=== PATIENT | female | born 1995 | race American Indian/Alaskan Native ===

== ENCOUNTER 2017-03-10 09:43 | Emergency (ER) | payer MEDICAID ==
[2017-03-10 09:57] VITALS: BP 102/74
--- NOTE | 2017-03-10 10:35 | Emergency Department Report ---
- General Chief Complaint: Upper Respiratory Infection Stated Complaint: FEVER / BODY ACHES Time Seen by Provider: 03/10/17 10:26 Source: patient Mode of arrival: Ambulatory Limitations: No Limitations - History of Present Illness MD Complaint: fever, cough, sore throat, rhinorrhea, nasal congestion, sinus pain -: Gradual, days(s) (2) Quality: aching Associated Symptoms: fever, chills, myalgias, headache, rhinorrhea, nasal congestion, sore throat. denies: stiff neck, cough - Related Data Home Medications Medication Instructions Recorded Confirmed Last Taken Tablet 1 tab PO DAILY 03/18/15 03/18/15 03/04/15 08:30 1 tab Previous Rx's Medication Instructions Recorded Last Taken Type Ferrous Sulfate [Feosol 325 MG tab] 325 mg PO BID #60 tablet 03/20/15 Unknown Rx Ibuprofen [Motrin 600 MG tab] 600 mg PO Q6H #30 tablet 03/20/15 Unknown Rx Amoxicillin [Amoxicillin TAB] 875 mg PO BID #24 tablet 03/10/17 Unknown Rx Allergies Allergy/AdvReac Type Severity Reaction Status Date / Time No Known Allergies Allergy Unverified 03/18/15 05:27 ED Review of Systems ROS: Stated complaint: FEVER / BODY ACHES Other details as noted in HPI Constitutional: chills, fever, malaise Eyes: denies: eye pain, eye discharge, vision change ENT: throat pain. denies: ear pain Respiratory: denies: cough, shortness of breath, SOB with exertion, SOB at rest , stridor, wheezing Cardiovascular: denies: chest pain, palpitations Endocrine: no symptoms reported Gastrointestinal: denies: abdominal pain, nausea, diarrhea Genitourinary: denies: urgency, dysuria, discharge Musculoskeletal: denies: back pain, joint swelling, arthralgia Skin: denies: rash, lesions Neurological: denies: headache, weakness, paresthesias Psychiatric: denies: anxiety, depression Hematological/Lymphatic: denies: easy bleeding, easy bruising ED Past Medical Hx - Past Medical History Previous Medical History?: No Hx Hypertension: No Hx Congestive Heart Failure: No Hx Diabetes: No Hx Deep Vein Thrombosis: No Hx Renal Disease: No Hx Sickle Cell Disease: No Hx Seizures: No Hx Asthma: No Hx COPD: No Hx HIV: No - Surgical History Past Surgical History?: No - Social History Smoking Status: Unknown if ever smoked Substance Use Type: None - Medications Home Medications: Home Medications Medication Instructions Recorded Confirmed Last Taken Type Tablet 1 tab PO DAILY 03/18/15 03/18/15 03/04/15 08:30 History 1 tab Ferrous Sulfate [Feosol 325 MG tab] 325 mg PO BID #60 tablet 03/20/15 Unknown Rx Ibuprofen [Motrin 600 MG tab] 600 mg PO Q6H #30 tablet 03/20/15 Unknown Rx Amoxicillin [Amoxicillin TAB] 875 mg PO BID #24 tablet 03/10/17 Unknown Rx ED Physical Exam - General Limitations: No Limitations General appearance: alert, in no apparent distress - Head Head exam: Present: atraumatic, normocephalic - Eye Eye exam: Present: normal appearance, PERRL, EOMI - ENT ENT exam: Present: mucous membranes moist - Expanded ENT Exam Expanded Mouth exam: Absent: drooling, trismus, muffled voice Throat exam: Positive: tonsillar erythema - Neck Neck exam: Present: normal inspection. Absent: tenderness, meningismus, full ROM - Respiratory Respiratory exam: Present: normal lung sounds bilaterally. Absent: respiratory distress - Cardiovascular Cardiovascular Exam: Present: regular rate, normal rhythm. Absent: systolic murmur, diastolic murmur, rubs, gallop - GI/Abdominal GI/Abdominal exam: Present: soft, normal bowel sounds - Extremities Exam Extremities exam: Present: normal inspection - Back Exam Back exam: Present: normal inspection - Neurological Exam Neurological exam: Present: alert, oriented X3 - Psychiatric Psychiatric exam: Present: normal affect, normal mood - Skin Skin exam: Present: warm, dry, intact, normal color. Absent: rash ED Course Vital Signs 03/10/17 09:54 Temperature 98.2 F Pulse Rate 75 Respiratory 20 Rate Blood Pressure 102/74 O2 Sat by Pulse 95 Oximetry Critical care attestation.: If time is entered above; I have spent that time in minutes in the direct care of this critically ill patient, excluding procedure time. ED Disposition Clinical Impression: Pharyngitis, Sinusitis Disposition: DISCHARGED TO HOME OR SELFCARE Is pt being admited?: No Condition: Stable Instructions: Pharyngitis (ED), Sinusitis (ED) Prescriptions: Amoxicillin [Amoxicillin TAB] 875 mg PO BID #24 tablet Referrals: PRIMARY CARE, [Primary Care Provider] - 3-5 Days Forms: Work/School Release Form(ED)
== END 2017-03-10 11:31 | disposition home or self-care (01) ==
LOC: ED 09:43
DX: J02.9 Acute pharyngitis, unspecified (principal); J32.9 Chronic sinusitis, unspecified
CPT/HCPCS: 99282

== ENCOUNTER 2017-04-22 05:08 | Emergency (ER) | payer MEDICAID ==
[2017-04-22 06:16] LABS: Basophils % (Auto) 1.1 % (0.0-1.8); Eosinophils % (Auto) 3.4 % (0.0-4.3); Hematocrit 37.7 % (30.3-42.9); Hemoglobin 13.1 gm/dl (10.1-14.3); Mean Corpuscular HGB Conc 35 % (30-34); Mean Corpuscular Hemoglobin 29 pg (28-32); Mean Corpuscular Volume 85 fl (79-97); Platelet Count 261 K/mm3 (140-440); Red Blood Count 4.45 M/mm3 (3.65-5.03); Red Cell Distribution Width 13.2 % (13.2-15.2); White Blood Count 9.2 K/mm3 (4.5-11.0)
[2017-04-22 06:33] LABS: Alanine Aminotransferase 13 units/L (7-56); Albumin 4.6 g/dL (3.9-5); Albumin/Globulin Ratio 1.3 %; Alkaline Phosphatase 69 units/L (35-129); Anion Gap 15 mmol/L; Blood Urea Nitrogen 7 mg/dL (7-17); Calcium 9.4 mg/dL (8.4-10.2); Carbon Dioxide 26 mmol/L (22-30); Chloride 101.5 mmol/L (98-107); Glucose 78 mg/dL (65-100); Lipase 71 units/L (13-60); Potassium 3.8 mmol/L (3.6-5.0); Sodium 139 mmol/L (137-145); Total Protein 8.1 g/dL (6.3-8.2)
[2017-04-22 07:41] LABS: Bilirubin,Urine NEG (Negative); Blood,Urine NEG (Negative); Ketones,Urine NEG (Negative); Leukocyte Esterase,Urine NEG (Negative); Mucus,Urine 3+ /HPF; Nitrite,Urine NEG (Negative); Protein,Urine <15 mg/dL mg/dL (Negative); Urobilinogen,Urine < 2.0 mg/dL (<2.0)
--- NOTE | 2017-04-22 16:46 | Emergency Department Report ---
ED Abdominal Pain HPI - General Chief Complaint: Abdominal Pain Stated Complaint: NO APPETITE Time Seen by Provider: 04/22/17 16:26 Source: EMS Mode of arrival: Ambulatory Limitations: No Limitations - History of Present Illness MD Complaint: abdominal pain -: Sudden, days(s) (3) Location: suprapubic Radiation: none Migration to: no migration Severity: mild Severity scale (0 -10): 2 Quality: cramping Consistency: constant Improves With: nothing Worsens With: eating Associated Symptoms: denies other symptoms Treatments Prior to Arrival: other - Related Data LMP (females 10-50): last week Home Medications Medication Instructions Recorded Confirmed Last Taken Tablet 1 tab PO DAILY 03/18/15 03/18/15 03/04/15 08:30 1 tab Previous Rx's Medication Instructions Recorded Last Taken Type Ferrous Sulfate [Feosol 325 MG tab] 325 mg PO BID #60 tablet 03/20/15 Unknown Rx Ibuprofen [Motrin 600 MG tab] 600 mg PO Q6H #30 tablet 03/20/15 Unknown Rx Amoxicillin [Amoxicillin TAB] 875 mg PO BID #24 tablet 03/10/17 Unknown Rx Dicyclomine [Bentyl] 10 mg PO QID #30 capsule 04/22/17 Unknown Rx Allergies Allergy/AdvReac Type Severity Reaction Status Date / Time No Known Allergies Allergy Unverified 03/18/15 05:27 ED Review of Systems ROS: Stated complaint: NO APPETITE Other details as noted in HPI Comment: All other systems reviewed and negative Respiratory: no symptoms reported Endocrine: no symptoms reported Gastrointestinal: abdominal pain, nausea ED Past Medical Hx - Past Medical History Previous Medical History?: No Hx Hypertension: No Hx Congestive Heart Failure: No Hx Diabetes: No Hx Deep Vein Thrombosis: No Hx Renal Disease: No Hx Sickle Cell Disease: No Hx Seizures: No Hx Asthma: No Hx COPD: No Hx HIV: No - Surgical History Past Surgical History?: No - Social History Smoking Status: Unknown if ever smoked Substance Use Type: None - Medications Home Medications: Home Medications Medication Instructions Recorded Confirmed Last Taken Type Tablet 1 tab PO DAILY 03/18/15 03/18/15 03/04/15 08:30 History 1 tab Ferrous Sulfate [Feosol 325 MG tab] 325 mg PO BID #60 tablet 03/20/15 Unknown Rx Ibuprofen [Motrin 600 MG tab] 600 mg PO Q6H #30 tablet 03/20/15 Unknown Rx Amoxicillin [Amoxicillin TAB] 875 mg PO BID #24 tablet 03/10/17 Unknown Rx Dicyclomine [Bentyl] 10 mg PO QID #30 capsule 04/22/17 Unknown Rx ED Physical Exam - General Limitations: No Limitations, Language Barrier General appearance: in no apparent distress - Head Head exam: Present: atraumatic - Eye Pupils: Present: normal accommodation - ENT ENT exam: Present: normal exam - Neck Neck exam: Present: normal inspection - Respiratory Respiratory exam: Present: normal lung sounds bilaterally - Cardiovascular Cardiovascular Exam: Present: regular rate, normal rhythm - GI/Abdominal GI/Abdominal exam: Present: soft - Rectal Rectal exam: Present: deferred - External exam: Present: other (patient refused) - Back Exam Back exam: Present: normal inspection - Neurological Exam Neurological exam: Present: alert, altered - Psychiatric Psychiatric exam: Present: normal affect, normal mood - Skin Skin exam: Present: warm, dry ED Course Vital Signs 04/22/17 05:29 Temperature 97.5 F L Pulse Rate 70 Blood Pressure 98/89 O2 Sat by Pulse 97 Oximetry - Reevaluation(s) Reevaluation #1: 04/22/17 16:46 feels better wants to go home. ED Medical Decision Making - Lab Data Result diagrams: 04/22/17 05:58 04/22/17 05:58 Critical care attestation.: If time is entered above; I have spent that time in minutes in the direct care of this critically ill patient, excluding procedure time. ED Disposition Clinical Impression: Abdominal pain Disposition: DC-01 TO HOME OR SELFCARE Is pt being admited?: No Does the pt Need Aspirin: No Condition: Stable Instructions: Abdominal Pain (ED) Prescriptions: Dicyclomine [Bentyl] 10 mg PO QID #30 capsule Referrals: PRIMARY CARE, [Primary Care Provider] - 3-5 Days
[2017-04-22 16:48] VITALS: BP 98/64
== END 2017-04-22 17:12 | disposition home or self-care (01) ==
LOC: ED 05:08
DX: R10.9 Unspecified abdominal pain (principal)
CPT/HCPCS: 36415; 80053; 81001; 83690; 84703; 85025; 99283

== ENCOUNTER 2018-12-10 11:55 | Emergency (ER) | payer MEDICAID ==
--- NOTE | 2018-12-10 12:08 | Emergency Department Report ---
Blank Doc - Documentation Documentation: 23 female presents with throat pain x 2 days difficult to drink or eat due to pain no vag bleed, abd pain, LMP 07/11/18 erythematous, exudate This initial assessment diagnostic orders/clinical plan/treatment (s) is/Are subject change based on patient's health status, clinical progression and re- assessment by fellow clinical providers in the ED. Further treatment and work-up at subsequent clinical providers discretion. Patient/guardians urged not to elope from their condition may be serious if not clinically assessed and managed. Initial order include: Rapid strep treatment ACC evaluation
[2018-12-10 14:48] LABS: Basophils # (Auto) 0.1 K/mm3 (0.0-0.1); Basophils % (Auto) 0.7 % (0.0-1.8); Eosinophils # (Auto) 0.1 K/mm3 (0.0-0.4); Eosinophils % (Auto) 0.5 % (0.0-4.3); Hematocrit 32.3 % (30.3-42.9); Hemoglobin 11.3 gm/dl (10.1-14.3); Lymphocytes # (Auto) 2.2 K/mm3 (1.2-5.4); Mean Corpuscular HGB Conc 35 % (30-34); Mean Corpuscular Volume 85 fl (79-97); Monocytes # (Auto) 0.7 K/mm3 (0.0-0.8); Monocytes % (Auto) 7.3 % (0.0-7.3); Platelet Count 267 K/mm3 (140-440); Red Blood Count 3.79 M/mm3 (3.65-5.03); Red Cell Distribution Width 13.1 % (13.2-15.2)
--- NOTE | 2018-12-10 14:53 | Emergency Department Report ---
HPI - General Chief Complaint: Sore Throat Time Seen by Provider: 12/10/18 12:03 - HPI HPI: 23-year-old female presents to the emergency department with complaint of some difficulty swallowing liquids and solids. The patient says that the difficulty with solids has been going on for the past year but the difficulty with liquids has been going on for the past 2 weeks. She is concerned as she is about 5 months and wants to make sure that she is taking in enough calories in nutrients for her and the fetus. She denies any ab dominal pain, vaginal bleeding, fever, nausea, back pain. She follows with primarily her [facility]POR[facility]K ANALYST. She otherwise denies any other past medical history. She has not taken anything for her symptoms prior to arrival. ED Past Medical Hx - Past Medical History Previous Medical History?: No Hx Hypertension: No Hx Congestive Heart Failure: No Hx Diabetes: No Hx Deep Vein Thrombosis: No Hx Renal Disease: No Hx Sickle Cell Disease: No Hx Seizures: No Hx Asthma: No Hx COPD: No Hx HIV: No - Surgical History Past Surgical History?: No - Social History Smoking Status: Never Smoker Substance Use Type: None - Medications Home Medications: Home Medications Medication Instructions Recorded Confirmed Last Taken Type Tablet 1 tab PO DAILY 03/18/15 03/18/15 03/04/15 08:30 History 1 tab RX: Ferrous Sulfate [Feosol 325 MG 325 mg PO BID #60 tablet 03/20/15 Unknown Rx tab] RX: Ibuprofen [Motrin 600 MG tab] 600 mg PO Q6H #30 tablet 03/20/15 Unknown Rx Amoxicillin [Amoxicillin TAB] 875 mg PO BID #24 tablet 03/10/17 Unknown Rx Dicyclomine [Bentyl] 10 mg PO QID #30 capsule 04/22/17 Unknown Rx Nitrofurantoin Monohyd/M-Cryst 100 mg PO BID #14 capsule 12/10/18 Unknown Rx [Macrobid 100 mg Capsule] ED Review of Systems ROS: Stated complaint: SORE THROAT/5 MOS Other details as noted in HPI Comment: All other systems reviewed and negative Constitutional: denies: chills, fever Eyes: denies: eye pain, vision change ENT: throat pain, other (difficulty swallowing) Respiratory: denies: cough, shortness of breath Cardiovascular: denies: chest pain, palpitations Gastrointestinal: denies: abdominal pain, vomiting Genitourinary: denies: dysuria, frequency Musculoskeletal: denies: back pain, arthralgia Skin: denies: rash, lesions Neurological: denies: headache, weakness Physical Exam - Physical Exam Vital Signs: Vital Signs 12/10/18 12:03 Temperature 98.2 F Pulse Rate 78 Respiratory 18 Rate Blood Pressure 102/57 O2 Sat by Pulse 100 Oximetry Physical Exam: GENERAL: The patient is well-developed well-nourished. HEENT: Normocephalic. Atraumatic. Patient has moist mucous membranes. Oropharynx is clear without tonsillar hypertrophy, erythema or exudates. Mallampati of one. No drooling or trismus. EYES: Extraocular motions are intact. Pupils are equal and reactive to light bilaterally. NECK: Supple. Trachea is midline. CHEST/LUNGS: Clear to auscultation. There is no respiratory distress noted. HEART/CARDIOVASCULAR: Regular. There is no tachycardia. There is no obvious murmur. ABDOMEN: Abdomen is soft, nontender. Patient has normal bowel sounds. There is no abdominal distention. SKIN: Skin is warm and dry. NEURO: The patient is awake, alert, and oriented. The patient is cooperative. The patient has no focal neurologic deficits. The patient has normal speech. MUSCULOSKELETAL: There is no tenderness or deformity. There is no limitation range of motion. There is no evidence of acute injury. ED Course Vital Signs 12/10/18 12:03 Temperature 98.2 F Pulse Rate 78 Respiratory 18 Rate Blood Pressure 102/57 O2 Sat by Pulse 100 Oximetry ED Medical Decision Making - Lab Data Result diagrams: 12/10/18 14:37 12/10/18 14:37 - Medical Decision Making This patient presents to the emergency Department with complaints of some throat pain and/or difficulty swallowing. On examination there is no tonsillar hypertrophy, erythema or exudates, drooling or trismus. The patient was tested for strep pharyngitis through triage and it came back as negative. The patient explained her symptoms to me when she came back to the fast track side and it sounded more like some dysphagia. She says that she has difficulty swallowing both liquids and solids. However the patient does not appear consistent with any impacted food bolus or any severe esophageal stricture. The patient was seen sucking on a peppermint candy. And was later seen eating and drinking without any nausea, vomiting, or inability to pass the food. However the patient does display some signs of dehydration. She may have some previous episodes of dysphasia or she could be having some discomfort with swallowing and choosing not to eat or drink enough. She had 80 ketones in the urine but there was no signs of any renal insufficiency or acute kidney injury. The patient was given an IV and had IV fluid resuscitation. After this she was seen ambulatory, and once again passed an oral challenge. For all these reasons the patient appears safe for discharge home at this time. She has been instructed to follow up with primary care and [facility]K ANA[facility]. She will increase her oral rehydration. However the patient will return to the emergency department immediately with any inability to stay hydrated or any worsening of her symptoms or any acute distress. Regarding the patient's , the patient tells me that she is and does appear to have a gravid uterus that is palpable in the abdomen. However she denies any abdominal or pelvic pain, vaginal bleeding or discharge, and does not appear to require any ultrasound imaging at this time. - Differential Diagnosis hyperemesis, esophageal stricture, impacted food bolus, strep pharyngitis Critical Care Time: No Critical care attestation.: If time is entered above; I have spent that time in minutes in the direct care of this critically ill patient, excluding procedure time. ED Disposition Clinical Impression: Dehydration Qualifiers: Weeks of gestation: unspecified Qualified Code(s): Z34.90 - Encounter for supervision of normal , unspecified, unspecified trimester UTI (urinary tract infection) Qualifiers: Urinary tract infection type: acute cystitis Hematuria presence: without hematuria Qualified Code(s): N30.00 - Acute cystitis without hematuria Pharyngitis Qualifiers: Pharyngitis/tonsillitis etiology: unspecified etiology Qualified Code(s): J02.9 - Acute pharyngitis, unspecified Disposition: DC-01 TO HOME OR SELFCARE Is pt being admited?: No Condition: Stable Instructions: Dehydration (ED), Urinary Tract Infection in Women (ED) Additional Instructions: Please follow-up with your CORPORATE RISK ANALYST. Return to the emergency Department with any worsening of your symptoms or any acute distress. Take the antibiotics as prescribed for your urinary tract infection. Increase your oral rehydration. Prescriptions: Nitrofurantoin Monohyd/M-Cryst [Macrobid 100 mg Capsule] 100 mg PO BID #14 capsule Referrals: [facility] [Provider Group] - 2-3 Days Time of Disposition: 18:15
[2018-12-10 15:11] LABS: Alanine Aminotransferase 14 units/L (7-56); BUN/Creatinine Ratio 10; Blood Urea Nitrogen 4 mg/dL (7-17); Calcium 8.8 mg/dL (8.4-10.2); Hemolysis Index 5
[2018-12-10 15:48] LABS: Bilirubin,Urine NEG (Negative); Blood,Urine NEG (Negative); Color,Urine Yellow (Yellow); Mucus,Urine FEW /HPF; Protein,Urine <15 mg/dL mg/dL (Negative)
[2018-12-10] MEDS ORDERED: ROCEPHIN/NS 1 GM/50 ML 1 GM/50 ML BAG IV ONE (15:58)
[2018-12-10] MEDS ORDERED: NACL 0.9% 1000 ML 1,000 ML IV ONE (15:58)
[2018-12-10 17:54] VITALS: BP 98/54
== END 2018-12-10 18:22 | disposition home or self-care (01) ==
LOC: ED 11:55
DX: O99.612 Diseases of the digestive system complicating pregnancy, second trimester (principal); J02.9 Acute pharyngitis, unspecified; E86.0 Dehydration; O23.42 Unspecified infection of urinary tract in pregnancy, second trimester; Z3A.20 20 weeks gestation of pregnancy
CPT/HCPCS: 36415; 80053; 81001; 85025; 87116; 87430; 96365; 99283; J0696; J7030